=== PATIENT | female | born 2005 | race Caucasian/White ===

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

== ENCOUNTER → 2023-06-08 | Outpatient (CLI) | payer OTHER, SELFPAY ==
[2023-06-08 17:40] LABS: Absolute Lymphocyte Count 1.63 X10^3/uL (0.83-4.51); Absolute Neutrophil Count 5.2 X10^3/uL (2.0-7.7); Basophil# 0.03 X10^3/uL; Basophil% 0.4 % (0-1); Eosinophil# 0.13 X10^3/uL; Eosinophils% 1.8 % (0-5); Hematocrit 39.9 % (37-47); Hemoglobin 13.4 g/dL (12.0-15.0); Lymphocyte # 1.63 X10^3/ul (0.83-4.51); Lymphocyte % 22.1 % (19-41); Mean Corp Hgb Conc 33.6 g/dL (32-36); Mean Corpuscular Hgb 31.6 pg (27.0-32.0); Mean Corpuscular Volume 94.1 fL (81-99); Mean Platelet Vol. 9.6 fl (6.2-12.0); Monocyte# 0.38 X10^3/uL; Monocyte% 5.1 % (0-10); NRBC Flagged by Analyzer 0 % (0-5); Neutrophil # 5.19 X10^3/uL (2.7-7.7); Neutrophil % 70.3 % (47-70); Platelet Count 279 K/mm3 (150-450); RBC Distribution Width CV 11.9 % (11.6-14.6); Red Blood Count 4.24 M/mm3 (4.2-5.4); White Blood Count 7.4 K/mm3 (4.4-11.0)
[2023-06-08 18:07] LABS: Vitamin B12 896 pg/mL (211-911); Vitamin D,25 Hydroxy 42.7 ng/mL
[2023-06-08 18:14] LABS: Hemoglobin A1c 4.9 % (3.8-5.6)
[2023-06-08 18:54] LABS: AST(SGOT) 20 U/L (15-37); Alanine Aminotransfer ALT/SGPT 15 U/L (13-56); Albumin, Serum 4.2 g/dL (3.2-5.0); Alkaline Phosphatase 67 U/L (45-117); Anion Gap 7 (5-15); BUN 9 mg/dL (7-18); Calcium,Total 9.7 mg/dL (8.5-10.1); Chloride 106 mmol/L (98-107); EST Glomerular Filtration Rate 86 mL/min (>60); Est Glom Filt Rate - Afr Amer 104 mL/min (>60); Globulin 4.3 g/dL (2.2-4.2); Glucose 86 mg/dL (74-106); Magnesium 2.3 mg/dL (1.6-2.6); Potassium 3.9 mmol/L (3.5-5.1); Protein, Total 8.5 g/dL (6.4-8.2); Sodium Level 138 mmol/L (136-145); Thyroid Stim Hormone (TSH) 0.14 uIU/mL (0.358-3.74)
[2023-06-13 16:08] LABS: Zinc, Plasma or Serum 88 ug/dL (44-115)
== END | disposition home or self-care (01) ==
LOC: MFPLAB 14:59
PROVIDERS: PCP Family Medicine; Visit Provider Family Medicine
DX: E28.2 Polycystic ovarian syndrome (principal); R53.83 Other fatigue
CPT/HCPCS: 36415; 80053; 82306; 82607; 82746; 83036; 83735; 84443; 84630; 85025

== ENCOUNTER → 2023-06-14 | Outpatient (CLI) | payer OTHER, SELFPAY ==
[2023-06-14 10:39] LABS: Free T3 3.3 pg/mL (2.18-3.98); T4 Free Direct 0.97 ng/dL (0.76-1.46); Thyroid Stim Hormone (TSH) 0.03 uIU/mL (0.358-3.74)
[2023-06-20 00:07] LABS: Testosterone Free 3.7 pg/mL (Not Estab.)
== END | disposition home or self-care (01) ==
LOC: MFPLAB 08:26
PROVIDERS: PCP Family Medicine; Visit Provider Family Medicine
DX: E07.9 Disorder of thyroid, unspecified (principal); E28.2 Polycystic ovarian syndrome
CPT/HCPCS: 36415; 84402; 84403; 84439; 84443; 84481